=== PATIENT | female | born 1965 | race Caucasian/White ===

== ENCOUNTER 2022-06-05 15:19 | Emergency (ER) | payer MEDICAID ==
[~2022-06-05] VITALS: Ht 162.6 cm; Wt 72.0 kg
[2022-06-05] MEDS ORDERED: LIDOCAINE HCL/EPINEPHRINE 1%-EPI 1:100,000 20 ML VIAL INFIL ONE (19:30)
[2022-06-05] MEDS ORDERED: IBUP-2028 MT (21:24)
[2022-06-05] MEDS ORDERED: TOPUD PO (21:24)
[2022-06-05] MEDS ORDERED: IBUPROFEN 400MG TABLET PO ONE (21:30)
[2022-06-05] MEDS ORDERED: ACETAMINOPHEN 325MG TABLET PO ONE (21:30)
[2022-06-05 21:35] VITALS: BP 112/68
== END 2022-06-05 21:35 ==
LOC: ER 15:19
DX: N75.0 Cyst of Bartholin's gland (principal); Z90.49 Acquired absence of other specified parts of digestive tract
CPT/HCPCS: 56420; 99284; J3490

== ENCOUNTER 2022-06-09 05:26 | Emergency (ER) | payer MEDICAID, MEDICARE ==
[~2022-06-09] VITALS: Ht 165.1 cm; Wt 72.0 kg
[~2022-06-09 05:26] MED LIST: IBUP-2028 MT; TOPUD PO
[2022-06-09 05:35] VITALS: BP 142/88
[2022-06-09 08:39] LABS: BASOPHILS % 0.7 % (0.0-2.0); EOSINOPHILS % 0.8 % (0.0-5.0); HEMATOCRIT. 40.8 % (36.0-48.0); HEMOGLOBIN. 13.1 g/dL (12.0-16.0); LYMPHOCYTES % 37.8 % (20.0-50.0); MEAN CORPUSCULAR HEMOGLOBIN 26.2 pg (28.0-32.0); MEAN CORPUSCULAR VOLUME 81.4 fL (81.0-99.0); MEAN PLATELET VOLUME 7.9 fl (7.4-10.4); MONOCYTES % 6.8 % (2.0-8.0); NEUTROPHILS % 53.9 % (40.0-76.0); PLATELET 217 x1000/uL (130-400); RED BLOOD CELL COUNT 5.01 mill/uL (4.2-5.4); RED CELL DISTRIBUTION WIDTH 16.4 % (11.6-14.6)
[2022-06-09 08:49] LABS: CHLORIDE 111 mEq/L (98-107)
[2022-06-09 09:00] LABS: CLARITY URINE CLEAR (CLEAR); COLOR URINE ORANGE (YELLOW); KETONES URINE NEGATIVE (NEGATIVE); LEUKOCYTE ESTERASE URINE 1+ (NEGATIVE); NITRITE URINE NEGATIVE (NEGATIVE); OCCULT BLOOD URINE 3+ (NEGATIVE); PROTEIN URINE NEGATIVE (NEGATIVE); SPECIFIC GRAVITY URINE 1.009 (1.005-1.030); UROBILINOGEN URINE 0.2 E.U./dL (0.2-1.0)
== END 2022-06-09 09:59 | disposition home or self-care (01) ==
LOC: ER 05:26
DX: N93.9 Abnormal uterine and vaginal bleeding, unspecified (principal); Z90.49 Acquired absence of other specified parts of digestive tract
CPT/HCPCS: 36415; 80053; 81003; 85025; 99283; 99284